=== PATIENT | male | born 1980 | race Caucasian/White ===

== ENCOUNTER 2023-08-09 12:27 | Outpatient (CLI) | payer OTHER, SELFPAY | END 2023-08-09 12:28 | disposition home or self-care (01) | PROVIDERS: PCP Physician Assistant Medical; Visit Provider Physician Assistant | DX: R14.0 Abdominal distension (gaseous) (principal) | CPT/HCPCS: 80076; 82150; 83690 ==

== ENCOUNTER 2023-08-16 15:37 | Outpatient (CLI) | payer OTHER, SELFPAY ==
--- NOTE | 2023-08-16 16:00 | CT_ITS ---
Patient: STEPHANY SHORT Facility:?[facility] RIS Patient ID:?[id number] Site Patient ID:?[id number]. Site :?[id number] Study:?CT-Abdomen/Pelvis / 132CC ISOVUE 370-08/16/2023 4:23:24 PM Ordering Physician:SONIA Final Report: INDICATION: Abdominal distention TECHNIQUE: CT abdomen and pelvis with 132 mL Isovue 370 COMPARISON: None. FINDINGS: Lower chest: Unremarkable. Liver: Normal in size and attenuation. No suspicious masses. Gallbladder and bile ducts: No stones or inflammation. No biliary dilatation. Pancreas: Unremarkable. No mass or inflammation. Spleen: Normal in size. No masses. Adrenal glands: Normal in size. No nodules. Kidneys: Normal in size. No suspicious masses, stones, or hydronephrosis. GI tract: Normal appendix. Mild diverticulosis mild gaseous distention of the colon which otherwise is unremarkable. Vasculature: Abdominal aorta is normal in caliber. Lymph nodes: No lymphadenopathy. Peritoneum/Abdominal Wall: Tiny fat containing umbilical hernia Pelvis: Prostate gland mildly prominent. Bones: Unremarkable for age. IMPRESSION: 1. Mild gaseous distention of the colon which otherwise is unremarkable. No acute findings in the abdomen or pelvis. Please note that all CT scans at this facility use dose modulation, iterative reconstruction, and/or weight-based dosing when appropriate to reduce radiation dose to as low as reasonably achievable. Dictated by Vita Mendez MD @ 08/17/2023 11:00:30 AM Signed by:?Vita Mendez MD @08/17/2023 11:00:30 AM (Electronic Signature)
== END 2023-08-16 15:38 | disposition home or self-care (01) ==
LOC: CT 15:39
PROVIDERS: PCP Physician Assistant Medical; Visit Provider Physician Assistant
DX: R14.0 Abdominal distension (gaseous) (principal)
CPT/HCPCS: 74177; Q9967

== ENCOUNTER 2025-04-10 14:08 | Outpatient (CLI) | payer OTHER, SELFPAY | END 2025-04-10 14:09 | disposition home or self-care (01) | PROVIDERS: PCP Family Medicine; Visit Provider Family Medicine | DX: Z13.1 Encounter for screening for diabetes mellitus (principal); Z13.6 Encounter for screening for cardiovascular disorders; B35.1 Tinea unguium; Z13.29 Encounter for screening for other suspected endocrine disorder | CPT/HCPCS: 80048; 80061; 80076; 84443 ==